=== PATIENT | female | born 2000 | race Two or more races ===

== ENCOUNTER 2020-12-17 14:31 | Emergency (ER) | payer OTHER, SELFPAY ==
[2020-12-17 14:49] VITALS: BP 169/97; PULSE 100; RESP 16; TEMP 36.6; O2SAT 98; BMI 41.1
--- NOTE | 2020-12-17 15:39 | ED_ITS ---
HPI - Female Genitourinary General Chief complaint: Urogenital-Female <LUIS ALBERTO Mercedes - Last Filed: 12/17/20 16:54> Stated complaint: QUEST UTI <LUIS ALBERTO Mercedes Last Filed: 12/17/20 16:54> Time Seen by Provider: 12/17/20 15:39 <LUIS ALBERTO Mercedes Last Filed: 12/17/20 16:54> Source: patient <LUIS ALBERTO Mercedes Last Filed: 12/17/20 16:54> Mode of arrival: ambulatory <LUIS ALBERTO Mercedes Last Filed: 12/17/20 16:54> Limitations: no limitations <LUIS ALBERTO Mercedes Last Filed: 12/17/20 16:54> History of Present Illness HPI Narrative: 20 y/o female presenting with 2 days of painful urination. She states it nash when she urinates and wipes herself. She reportedly had a yeast infection about 10 days ago with white thick discharge and itching. She treated herself with over the counter medication with resolution of discharge. She continues to have some itching externally. Sexually active and does not recall her last menses. She has been urinating more frequently with discomfort. No blood in her urine, no vaginal bleeding. No abdominal pain, fever or chills. <LUIS ALBERTO Mercedes Last Filed: 12/17/20 16:54> MD elicited complaint: dysuria and genital itching <LUIS ALBERTO Mercedes Last Filed: 12/17/20 16:54> Onset (ago): day(s) (4) <LUIS ALBERTO Mercedes Last Filed: 12/17/20 16:54> Location of symptoms: external genitalia <LUIS ALBERTO Mercedes Last Filed: 12/17/20 16:54> Severity: moderate <LUIS ALBERTO Mercedes Last Filed: 12/17/20 16:54> Female Urogenital Radiation: Non-Radiating <LUIS ALBERTO Mercedes Last Filed: 12/17/20 16:54> Severity scale (1-10): 5 <LUIS ALBERTO Mercedes Last Filed: 12/17/20 16:54> Quality of pain: sharp and burning <LUIS ALBERTO Mercedes - Last Filed: 12/17/20 16:54> Consistency: intermittent <LUIS ALBERTO Mercedes - Last Filed: 12/17/20 16:54> Vaginal discharge: none <LUIS ALBERTO Mercedes - Last Filed: 12/17/20 16:54> Vaginal bleeding: none <LUIS ALBERTO Mercedes - Last Filed: 12/17/20 16:54> Urinary symptoms: Dysuria and Frequency <LUIS ALBERTO Mercedes - Last Filed: 12/17/20 16:54> Exacerbating factors: urination and palpation <LUIS ALBERTO Mercedes - Last Filed: 12/17/20 16:54> Relieving factors: none <LUIS ALBERTO Mercedes - Last Filed: 12/17/20 16:54> Associated symptoms: denies other symptoms <LUIS ALBERTO Mercedes - Last Filed: 12/17/20 16:54> Treatment prior to arrival: none <LUIS ALBERTO Mercedes - Last Filed: 12/17/20 16:54> Sexual activity: Yes <LUIS ALBERTO Mercedes - Last Filed: 12/17/20 16:54> Possible : unsure if <LUIS ALBERTO Mercedes - Last Filed: 12/17/20 16:54> Related Data Home medications: Previous Rx's Medication Instructions Recorded blood sugar diagnostic #10 ea 12/17/20 blood-glucose meter #1 ea 12/17/20 clotrimazole-betamethasone 1 appl TOPICAL BID #15 g 12/17/20 fluconazole [Diflucan] 150 mg PO DAILY #1 tab 12/17/20 lancets #100 ea 12/17/20 metformin 500 mg PO BID #60 tab 12/17/20 nitrofurantoin monohyd/m-cryst 100 mg PO BID #10 cap 12/17/20 [Macrobid] <LUIS ALBERTO Mercedes - Last Filed: 12/17/20 16:54> Allergies/Adverse reactions: Allergies Allergy/AdvReac Type Severity Reaction Status Date / Time No Known Allergies Allergy Unverified 07/10/20 17:00 [No Known Allergies*] <LUIS ALBERTO Mercedes - Last Filed: 12/17/20 16:54> Review of Systems Review of Systems: Constitutional: No Fever, No Chills Cardiovascular: No Chest Pain, No SOB Respiratory: No Cough, No Sputum Gastrointestinal: No Nausea, No Vomiting, No Diarrhea, No abdominal Pain Genitourinary: + Dysuria, No Urinary Frequency, No Hematuria Musculoskeletal: No joint pain, No Myalgias Skin: + Skin Lesions, No rash Endo: +polydipsia <LUIS ALBERTO Mercedes - Last Filed: 12/17/20 16:54> [facility] Past Medical History Attestation statement: The following information was validated with the patient. <LUIS ALBERTO Mercedes - Last Filed: 12/17/20 16:54> Social History Social History: Social History Alcohol intake: never Smoked in Last 30 Days: No Use of substances other than those prescribed or required for medical reasons: No Advance Directives: No Advance Directives Information Provided: Yes <LUIS ALBERTO Mercedes - Last Filed: 12/17/20 16:54> Physical Exam Vital Signs: Vital Signs: Last Vital Signs Temp 98 F 12/17/20 14:49 Pulse 100 12/17/20 14:49 Resp 16 12/17/20 14:49 BP 169/97 H 12/17/20 14:49 Pulse Ox 98 12/17/20 14:49 Body Mass Index 41.1 Appearance: Alert. Oriented X3. No acute distress. Eyes: Pupils equal, round and reactive to light. ENT: Pharynx normal. Neck: Normal inspection. Respiratory: No respiratory distress. Breath sounds normal. Abdomen: Obese, Soft and nontender. +BS x4 : external genitalia are normal in appearance, inner labia with erythema and mild excoriations on the medial, inner aspect, no vaginal discharge appreciated. speculum and bimanual exam deferred. Skin: Skin warm and dry. Normal skin color. Normal skin turgor. No rashes. Extremities: No lower extremity edema. Neuro: Oriented X 3. No motor deficit. No sensory deficit. <LUIS ALBERTO Mercedes - Last Filed: 12/17/20 16:54> Vital Signs: Last Vital Signs Temp 98 F 12/17/20 14:49 Pulse 100 12/17/20 14:49 Resp 16 12/17/20 14:49 BP 169/97 H 12/17/20 14:49 Pulse Ox 98 12/17/20 14:49 Body Mass Index 41.1 <Toshia Miranda NP - Last Filed: 12/17/20 19:26> Vital Signs: Last Vital Signs Temp 98 F 12/17/20 14:49 Pulse 100 12/17/20 14:49 Resp 16 12/17/20 14:49 BP 169/97 H 12/17/20 14:49 Pulse Ox 98 12/17/20 14:49 Body Mass Index 41.1 <Filemon Whitfield MD - Last Filed: 01/06/21 11:28> Course Course Course Narrative: 20 y/o female presenting with dysuria x2 days after she treated with topical antifungal last week for yeast infection. Exam is consistent with candidal vulvovaginitis, will treat with oral diflucan now. UA and Upreg pendin g. <LUIS ALBERTO Mercedes - Last Filed: 12/17/20 16:54> I have reviewed the chart <Filemon Whitfield MD - Last Filed: 01/06/21 11:28> Reevaluation(s) Reevaluation #1: UA showing +nitrites as well as >1000 glucose and 2+ protein. She denies history of DM. Admits to polydipsia. No other symptoms. Will check POC glucose now. <LUIS ALBERTO Mercedes - Last Filed: 12/17/20 16:54> Reevaluation #2: POC is 408. She has a family history of DM but no personal history. Last glucose here was 102 back in 2018. Will get basic lab workup and hemoglobin A1c. She appears well, doubt DKA. Will give 2L IVF and reassess. Results discussed w ith the patient. Will sign out to covering evening provider who will assume care. <LUIS ALBERTO Mercedes - Last Filed: 12/17/20 16:54> MDM - Female Genitourinary Lab Data Result diagrams: : 12/17/20 17:37 12/17/20 17:37 <LUIS ALBERTO Mercedes - Last Filed: 12/17/20 16:54> Labs: Lab Results 12/17/20 12/17/20 12/17/20 Range/Units 15:33 15:33 16:31 WBC (4.8-10.8) X10*3/uL RBC (4.20-5.50) X10*6/uL Hgb (12.0-16.0) g/dl Hct (37-47) % MCV (80-98) fL MCH (27.0-33.0) pg MCHC (31.0-35.0) g/dl RDW (11.0-16.0) % Plt Count (160-400) X10*3/uL MPV (9.4-12.3) fL Immature Gran % (Auto) (0.0-0.4) % Neut % (Auto) (45-73) % Lymph % (Auto) (20-40) % [place] % (Auto) (2-11) % Eos % (Auto) (0-4) % Baso % (Auto) (0-2) % Lymph # (Auto) (1.2-4.9) X10*3/uL [place] # (Auto) (0.1-1.2) X10*3/uL Eos # (Auto) (0.0-0.4) X10*3/uL Baso # (Auto) (0.0-0.2) X10*3/uL Abs Immat Gran (auto) (0.00-0.03) X10*3/uL Absolute Neuts (auto) (2.0-8.3) X10*3/uL Absolute Nucleated RBC (0.0-0.012) X10*3/uL Nucleated RBC % (auto) (0.0-0.2) /100WBC Sodium (135-145) mmol/L Potassium (3.3-5.1) mmol/L Chloride (96-108) mmol/L Carbon Dioxide (22-29) mmol/L Anion Gap (12-20) BUN (9-16) mg/dL Creatinine (0.5-1.4) mg/dL Estim Creat Clear Calc Estimated GFR POC Glucose 408 H* (60-115) mg/dL Random Glucose (60-115) mg/dL Estimat Average Glucose mg/dL Hemoglobin A1c % % Calcium (8.4-10.2) mg/dL Magnesium (1.6-2.6) mg/dL Urine Color YELLOW Urine Appearance CLEAR Urine pH 6.0 (5.0-8.0) Ur Specific [place] >= 1.030 H (1.005-1.025) Urine Protein 2+ H (NEG-TRACE) MG/DL Urine Glucose (UA) >=1000 H (NEG) MG/DL Urine Ketones 40 (NEG) MG/DL Urine Blood TRACE (NEG) Urine Nitrite POS H (NEG) Ur Leukocyte Esterase NEG (NEG) Urine RBC 0-2 (0) /HPF Urine WBC 0-2 (0-4) /HPF Ur Squamous Epith Cells 2+ /LPF Urine Bacteria TRACE /LPF Granular Casts 0-2 /LPF Urine Yeast TRACE /HPF Urine Test NEGATIVE (NEGATIVE) Acetone, Qual (Negative) 12/17/20 12/17/20 12/17/20 Range/Units 16:35 17:37 17:37 WBC 8.9 (4.8-10.8) X10*3/uL RBC 5.74 H (4.20-5.50) X10*6/uL Hgb 14.7 (12.0-16.0) g/dl Hct 45.0 (37-47) % MCV 78.4 L (80-98) fL MCH 25.6 L (27.0-33.0) pg MCHC 32.7 (31.0-35.0) g/dl RDW 12.7 (11.0-16.0) % Plt Count 342 (160-400) X10*3/uL MPV 10.3 (9.4-12.3) fL Immature Gran % (Auto) 0.2 (0.0-0.4) % Neut % (Auto) 65.3 (45-73) % Lymph % (Auto) 29.2 (20-40) % [place] % (Auto) 4.0 (2-11) % Eos % (Auto) 1.0 (0-4) % Baso % (Auto) 0.3 (0-2) % Lymph # (Auto) 2.6 (1.2-4.9) X10*3/uL [place] # (Auto) 0.4 (0.1-1.2) X10*3/uL Eos # (Auto) 0.1 (0.0-0.4) X10*3/uL Baso # (Auto) 0.0 (0.0-0.2) X10*3/uL Abs Immat Gran (auto) 0.02 (0.00-0.03) X10*3/uL Absolute Neuts (auto) 5.8 (2.0-8.3) X10*3/uL Absolute Nucleated RBC 0.000 (0.0-0.012) X10*3/uL Nucleated RBC % (auto) 0.0 (0.0-0.2) /100WBC Sodium (135-145) mmol/L Potassium (3.3-5.1) mmol/L Chloride (96-108) mmol/L Carbon Dioxide (22-29) mmol/L Anion Gap (12-20) BUN (9-16) mg/dL Creatinine (0.5-1.4) mg/dL Estim Creat Clear Calc Estimated GFR POC Glucose 409 H* (60-115) mg/dL Random Glucose (60-115) mg/dL Estimat Average Glucose 289 mg/dL Hemoglobin A1c % 11.7 % Calcium (8.4-10.2) mg/dL Magnesium (1.6-2.6) mg/dL Urine Color Urine Appearance Urine pH (5.0-8.0) Ur Specific [place] (1.005-1.025) Urine Protein (NEG-TRACE) MG/DL Urine Glucose (UA) (NEG) MG/DL Urine Ketones (NEG) MG/DL Urine Blood (NEG) Urine Nitrite (NEG) Ur Leukocyte Esterase (NEG) Urine RBC (0) /HPF Urine WBC (0-4) /HPF Ur Squamous Epith Cells /LPF Urine Bacteria /LPF Granular Casts /LPF Urine Yeast /HPF Urine Test (NEGATIVE) Acetone, Qual (Negative) 12/17/20 12/17/20 12/17/20 Range/Units 17:37 17:37 19:13 WBC (4.8-10.8) X10*3/uL RBC (4.20-5.50) X10*6/uL Hgb (12.0-16.0) g/dl Hct (37-47) % MCV (80-98) fL MCH (27.0-33.0) pg MCHC (31.0-35.0) g/dl RDW (11.0-16.0) % Plt Count (160-400) X10*3/uL MPV (9.4-12.3) fL Immature Gran % (Auto) (0.0-0.4) % Neut % (Auto) (45-73) % Lymph % (Auto) (20-40) % [place] % (Auto) (2-11) % Eos % (Auto) (0-4) % Baso % (Auto) (0-2) % Lymph # (Auto) (1.2-4.9) X10*3/uL [place] # (Auto) (0.1-1.2) X10*3/uL Eos # (Auto) (0.0-0.4) X10*3/uL Baso # (Auto) (0.0-0.2) X10*3/uL Abs Immat Gran (auto) (0.00-0.03) X10*3/uL Absolute Neuts (auto) (2.0-8.3) X10*3/uL Absolute Nucleated RBC (0.0-0.012) X10*3/uL Nucleated RBC % (auto) (0.0-0.2) /100WBC Sodium 134 L (135-145) mmol/L Potassium 4.4 (3.3-5.1) mmol/L Chloride 98 (96-108) mmol/L Carbon Dioxide 22 (22-29) mmol/L Anion Gap 18 (12-20) BUN 10 (9-16) mg/dL Creatinine 0.77 (0.5-1.4) mg/dL Estim Creat Clear Calc 138.1 Estimated GFR > 60 POC Glucose 275 H (60-115) mg/dL Random Glucose 382 H* (60-115) mg/dL Estimat Average Glucose mg/dL Hemoglobin A1c % % Calcium 9.6 (8.4-10.2) mg/dL Magnesium 1.8 (1.6-2.6) mg/dL Urine Color Urine Appearance Urine pH (5.0-8.0) Ur Specific [place] (1.005-1.025) Urine Protein (NEG-TRACE) MG/DL Urine Glucose (UA) (NEG) MG/DL Urine Ketones (NEG) MG/DL Urine Blood (NEG) Urine Nitrite (NEG) Ur Leukocyte Esterase (NEG) Urine RBC (0) /HPF Urine WBC (0-4) /HPF Ur Squamous Epith Cells /LPF Urine Bacteria /LPF Granular Casts /LPF Urine Yeast /HPF Urine Test (NEGATIVE) Acetone, Qual Negative (Negative) <LUIS ALBERTO Mercedes - Last Filed: 12/17/20 16:54> Lab Results 12/17/20 12/17/20 12/17/20 Range/Units 15:33 15:33 16:31 WBC (4.8-10.8) X10*3/uL RBC (4.20-5.50) X10*6/uL Hgb (12.0-16.0) g/dl Hct (37-47) % MCV (80-98) fL MCH (27.0-33.0) pg MCHC (31.0-35.0) g/dl RDW (11.0-16.0) % Plt Count (160-400) X10*3/uL MPV (9.4-12.3) fL Immature Gran % (Auto) (0.0-0.4) % Neut % (Auto) (45-73) % Lymph % (Auto) (20-40) % [place] % (Auto) (2-11) % Eos % (Auto) (0-4) % Baso % (Auto) (0-2) % Lymph # (Auto) (1.2-4.9) X10*3/uL [place] # (Auto) (0.1-1.2) X10*3/uL Eos # (Auto) (0.0-0.4) X10*3/uL Baso # (Auto) (0.0-0.2) X10*3/uL Abs Immat Gran (auto) (0.00-0.03) X10*3/uL Absolute Neuts (auto) (2.0-8.3) X10*3/uL Absolute Nucleated RBC (0.0-0.012) X10*3/uL Nucleated RBC % (auto) (0.0-0.2) /100WBC Sodium (135-145) mmol/L Potassium (3.3-5.1) mmol/L Chloride (96-108) mmol/L Carbon Dioxide (22-29) mmol/L Anion Gap (12-20) BUN (9-16) mg/dL Creatinine (0.5-1.4) mg/dL Estim Creat Clear Calc Estimated GFR POC Glucose 408 H* (60-115) mg/dL Random Glucose (60-115) mg/dL Estimat Average Glucose mg/dL Hemoglobin A1c % % Calcium (8.4-10.2) mg/dL Magnesium (1.6-2.6) mg/dL Urine Color YELLOW Urine Appearance CLEAR Urine pH 6.0 (5.0-8.0) Ur Specific [place] >= 1.030 H (1.005-1.025) Urine Protein 2+ H (NEG-TRACE) MG/DL Urine Glucose (UA) >=1000 H (NEG) MG/DL Urine Ketones 40 (NEG) MG/DL Urine Blood TRACE (NEG) Urine Nitrite POS H (NEG) Ur Leukocyte Esterase NEG (NEG) Urine RBC 0-2 (0) /HPF Urine WBC 0-2 (0-4) /HPF Ur Squamous Epith Cells 2+ /LPF Urine Bacteria TRACE /LPF Granular Casts 0-2 /LPF Urine Yeast TRACE /HPF Urine Test NEGATIVE (NEGATIVE) Acetone, Qual (Negative) 12/17/20 12/17/20 12/17/20 Range/Units 16:35 17:37 17:37 WBC 8.9 (4.8-10.8) X10*3/uL RBC 5.74 H (4.20-5.50) X10*6/uL Hgb 14.7 (12.0-16.0) g/dl Hct 45.0 (37-47) % MCV 78.4 L (80-98) fL MCH 25.6 L (27.0-33.0) pg MCHC 32.7 (31.0-35.0) g/dl RDW 12.7 (11.0-16.0) % Plt Count 342 (160-400) X10*3/uL MPV 10.3 (9.4-12.3) fL Immature Gran % (Auto) 0.2 (0.0-0.4) % Neut % (Auto) 65.3 (45-73) % Lymph % (Auto) 29.2 (20-40) % [place] % (Auto) 4.0 (2-11) % Eos % (Auto) 1.0 (0-4) % Baso % (Auto) 0.3 (0-2) % Lymph # (Auto) 2.6 (1.2-4.9) X10*3/uL [place] # (Auto) 0.4 (0.1-1.2) X10*3/uL Eos # (Auto) 0.1 (0.0-0.4) X10*3/uL Baso # (Auto) 0.0 (0.0-0.2) X10*3/uL Abs Immat Gran (auto) 0.02 (0.00-0.03) X10*3/uL Absolute Neuts (auto) 5.8 (2.0-8.3) X10*3/uL Absolute Nucleated RBC 0.000 (0.0-0.012) X10*3/uL Nucleated RBC % (auto) 0.0 (0.0-0.2) /100WBC Sodium (135-145) mmol/L Potassium (3.3-5.1) mmol/L Chloride (96-108) mmol/L Carbon Dioxide (22-29) mmol/L Anion Gap (12-20) BUN (9-16) mg/dL Creatinine (0.5-1.4) mg/dL Estim Creat Clear Calc Estimated GFR POC Glucose 409 H* (60-115) mg/dL Random Glucose (60-115) mg/dL Estimat Average Glucose 289 mg/dL Hemoglobin A1c % 11.7 % Calcium (8.4-10.2) mg/dL Magnesium (1.6-2.6) mg/dL Urine Color Urine Appearance Urine pH (5.0-8.0) Ur Specific [place] (1.005-1.025) Urine Protein (NEG-TRACE) MG/DL Urine Glucose (UA) (NEG) MG/DL Urine Ketones (NEG) MG/DL Urine Blood (NEG) Urine Nitrite (NEG) Ur Leukocyte Esterase (NEG) Urine RBC (0) /HPF Urine WBC (0-4) /HPF Ur Squamous Epith Cells /LPF Urine Bacteria /LPF Granular Casts /LPF Urine Yeast /HPF Urine Test (NEGATIVE) Acetone, Qual (Negative) 12/17/20 12/17/20 12/17/20 Range/Units 17:37 17:37 19:13 WBC (4.8-10.8) X10*3/uL RBC (4.20-5.50) X10*6/uL Hgb (12.0-16.0) g/dl Hct (37-47) % MCV (80-98) fL MCH (27.0-33.0) pg MCHC (31.0-35.0) g/dl RDW (11.0-16.0) % Plt Count (160-400) X10*3/uL MPV (9.4-12.3) fL Immature Gran % (Auto) (0.0-0.4) % Neut % (Auto) (45-73) % Lymph % (Auto) (20-40) % [place] % (Auto) (2-11) % Eos % (Auto) (0-4) % Baso % (Auto) (0-2) % Lymph # (Auto) (1.2-4.9) X10*3/uL [place] # (Auto) (0.1-1.2) X10*3/uL Eos # (Auto) (0.0-0.4) X10*3/uL Baso # (Auto) (0.0-0.2) X10*3/uL Abs Immat Gran (auto) (0.00-0.03) X10*3/uL Absolute Neuts (auto) (2.0-8.3) X10*3/uL Absolute Nucleated RBC (0.0-0.012) X10*3/uL Nucleated RBC % (auto) (0.0-0.2) /100WBC Sodium 134 L (135-145) mmol/L Potassium 4.4 (3.3-5.1) mmol/L Chloride 98 (96-108) mmol/L Carbon Dioxide 22 (22-29) mmol/L Anion Gap 18 (12-20) BUN 10 (9-16) mg/dL Creatinine 0.77 (0.5-1.4) mg/dL Estim Creat Clear Calc 138.1 Estimated GFR > 60 POC Glucose 275 H (60-115) mg/dL Random Glucose 382 H* (60-115) mg/dL Estimat Average Glucose mg/dL Hemoglobin A1c % % Calcium 9.6 (8.4-10.2) mg/dL Magnesium 1.8 (1.6-2.6) mg/dL Urine Color Urine Appearance Urine pH (5.0-8.0) Ur Specific [place] (1.005-1.025) Urine Protein (NEG-TRACE) MG/DL Urine Glucose (UA) (NEG) MG/DL Urine Ketones (NEG) MG/DL Urine Blood (NEG) Urine Nitrite (NEG) Ur Leukocyte Esterase (NEG) Urine RBC (0) /HPF Urine WBC (0-4) /HPF Ur Squamous Epith Cells /LPF Urine Bacteria /LPF Granular Casts /LPF Urine Yeast /HPF Urine Test (NEGATIVE) Acetone, Qual Negative (Negative) <Toshia Miranda, [employer] - Last Filed: 12/17/20 19:26> Lab Results 12/17/20 12/17/20 12/17/20 Range/Units 15:33 15:33 16:31 WBC (4.8-10.8) X10*3/uL RBC (4.20-5.50) X10*6/uL Hgb (12.0-16.0) g/dl Hct (37-47) % MCV (80-98) fL MCH (27.0-33.0) pg MCHC (31.0-35.0) g/dl RDW (11.0-16.0) % Plt Count (160-400) X10*3/uL MPV (9.4-12.3) fL Immature Gran % (Auto) (0.0-0.4) % Neut % (Auto) (45-73) % Lymph % (Auto) (20-40) % [place] % (Auto) (2-11) % Eos % (Auto) (0-4) % Baso % (Auto) (0-2) % Lymph # (Auto) (1.2-4.9) X10*3/uL [place] # (Auto) (0.1-1.2) X10*3/uL Eos # (Auto) (0.0-0.4) X10*3/uL Baso # (Auto) (0.0-0.2) X10*3/uL Abs Immat Gran (auto) (0.00-0.03) X10*3/uL Absolute Neuts (auto) (2.0-8.3) X10*3/uL Absolute Nucleated RBC (0.0-0.012) X10*3/uL Nucleated RBC % (auto) (0.0-0.2) /100WBC Sodium (135-145) mmol/L Potassium (3.3-5.1) mmol/L Chloride (96-108) mmol/L Carbon Dioxide (22-29) mmol/L Anion Gap (12-20) BUN (9-16) mg/dL Creatinine (0.5-1.4) mg/dL Estim Creat Clear Calc Estimated GFR POC Glucose 408 H* (60-115) mg/dL Random Glucose (60-115) mg/dL Estimat Average Glucose mg/dL Hemoglobin A1c % % Calcium (8.4-10.2) mg/dL Magnesium (1.6-2.6) mg/dL Urine Color YELLOW Urine Appearance CLEAR Urine pH 6.0 (5.0-8.0) Ur Specific [place] >= 1.030 H (1.005-1.025) Urine Protein 2+ H (NEG-TRACE) MG/DL Urine Glucose (UA) >=1000 H (NEG) MG/DL Urine Ketones 40 (NEG) MG/DL Urine Blood TRACE (NEG) Urine Nitrite POS H (NEG) Ur Leukocyte Esterase NEG (NEG) Urine RBC 0-2 (0) /HPF Urine WBC 0-2 (0-4) /HPF Ur Squamous Epith Cells 2+ /LPF Urine Bacteria TRACE /LPF Granular Casts 0-2 /LPF Urine Yeast TRACE /HPF Urine Test NEGATIVE (NEGATIVE) Acetone, Qual (Negative) 12/17/20 12/17/20 12/17/20 Range/Units 16:35 17:37 17:37 WBC 8.9 (4.8-10.8) X10*3/uL RBC 5.74 H (4.20-5.50) X10*6/uL Hgb 14.7 (12.0-16.0) g/dl Hct 45.0 (37-47) % MCV 78.4 L (80-98) fL MCH 25.6 L (27.0-33.0) pg MCHC 32.7 (31.0-35.0) g/dl RDW 12.7 (11.0-16.0) % Plt Count 342 (160-400) X10*3/uL MPV 10.3 (9.4-12.3) fL Immature Gran % (Auto) 0.2 (0.0-0.4) % Neut % (Auto) 65.3 (45-73) % Lymph % (Auto) 29.2 (20-40) % [place] % (Auto) 4.0 (2-11) % Eos % (Auto) 1.0 (0-4) % Baso % (Auto) 0.3 (0-2) % Lymph # (Auto) 2.6 (1.2-4.9) X10*3/uL [place] # (Auto) 0.4 (0.1-1.2) X10*3/uL Eos # (Auto) 0.1 (0.0-0.4) X10*3/uL Baso # (Auto) 0.0 (0.0-0.2) X10*3/uL Abs Immat Gran (auto) 0.02 (0.00-0.03) X10*3/uL Absolute Neuts (auto) 5.8 (2.0-8.3) X10*3/uL Absolute Nucleated RBC 0.000 (0.0-0.012) X10*3/uL Nucleated RBC % (auto) 0.0 (0.0-0.2) /100WBC Sodium (135-145) mmol/L Potassium (3.3-5.1) mmol/L Chloride (96-108) mmol/L Carbon Dioxide (22-29) mmol/L Anion Gap (12-20) BUN (9-16) mg/dL Creatinine (0.5-1.4) mg/dL Estim Creat Clear Calc Estimated GFR POC Glucose 409 H* (60-115) mg/dL Random Glucose (60-115) mg/dL Estimat Average Glucose 289 mg/dL Hemoglobin A1c % 11.7 % Calcium (8.4-10.2) mg/dL Magnesium (1.6-2.6) mg/dL Urine Color Urine Appearance Urine pH (5.0-8.0) Ur Specific [place] (1.005-1.025) Urine Protein (NEG-TRACE) MG/DL Urine Glucose (UA) (NEG) MG/DL Urine Ketones (NEG) MG/DL Urine Blood (NEG) Urine Nitrite (NEG) Ur Leukocyte Esterase (NEG) Urine RBC (0) /HPF Urine WBC (0-4) /HPF Ur Squamous Epith Cells /LPF Urine Bacteria /LPF Granular Casts /LPF Urine Yeast /HPF Urine Test (NEGATIVE) Acetone, Qual (Negative) 12/17/20 12/17/20 12/17/20 Range/Units 17:37 17:37 19:13 WBC (4.8-10.8) X10*3/uL RBC (4.20-5.50) X10*6/uL Hgb (12.0-16.0) g/dl Hct (37-47) % MCV (80-98) fL MCH (27.0-33.0) pg MCHC (31.0-35.0) g/dl RDW (11.0-16.0) % Plt Count (160-400) X10*3/uL MPV (9.4-12.3) fL Immature Gran % (Auto) (0.0-0.4) % Neut % (Auto) (45-73) % Lymph % (Auto) (20-40) % [place] % (Auto) (2-11) % Eos % (Auto) (0-4) % Baso % (Auto) (0-2) % Lymph # (Auto) (1.2-4.9) X10*3/uL [place] # (Auto) (0.1-1.2) X10*3/uL Eos # (Auto) (0.0-0.4) X10*3/uL Baso # (Auto) (0.0-0.2) X10*3/uL Abs Immat Gran (auto) (0.00-0.03) X10*3/uL Absolute Neuts (auto) (2.0-8.3) X10*3/uL Absolute Nucleated RBC (0.0-0.012) X10*3/uL Nucleated RBC % (auto) (0.0-0.2) /100WBC Sodium 134 L (135-145) mmol/L Potassium 4.4 (3.3-5.1) mmol/L Chloride 98 (96-108) mmol/L Carbon Dioxide 22 (22-29) mmol/L Anion Gap 18 (12-20) BUN 10 (9-16) mg/dL Creatinine 0.77 (0.5-1.4) mg/dL Estim Creat Clear Calc 138.1 Estimated GFR > 60 POC Glucose 275 H (60-115) mg/dL Random Glucose 382 H* (60-115) mg/dL Estimat Average Glucose mg/dL Hemoglobin A1c % % Calcium 9.6 (8.4-10.2) mg/dL Magnesium 1.8 (1.6-2.6) mg/dL Urine Color Urine Appearance Urine pH (5.0-8.0) Ur Specific [place] (1.005-1.025) Urine Protein (NEG-TRACE) MG/DL Urine Glucose (UA) (NEG) MG/DL Urine Ketones (NEG) MG/DL Urine Blood (NEG) Urine Nitrite (NEG) Ur Leukocyte Esterase (NEG) Urine RBC (0) /HPF Urine WBC (0-4) /HPF Ur Squamous Epith Cells /LPF Urine Bacteria /LPF Granular Casts /LPF Urine Yeast /HPF Urine Test (NEGATIVE) Acetone, Qual Negative (Negative) <Filemon Whitfield MD - Last Filed: 01/06/21 11:28> Discharge Plan Discharge Clinical Impression: Candidal vulvovaginitis, UTI (urinary tract infection), Protein in urine, Diabetes mellitus, new onset <LUIS ALBERTO Mercedes - Last Filed: 12/17/20 16:54> Patient Disposition: Home, Self-Care <LUIS ALBERTO Mercedes - Last Filed: 12/17/20 16:54> Instructions: Urinary Tract Infection in Women (ED), Yeast Infection (ED) <LUIS ALBERTO Mercedes - Last Filed: 12/17/20 16:54> Additional Instructions: Your test was negative. Your urine test showed evidence of bacterial infection as well as glucose and protein. This must be followed up by your doctor. You were given 1 dose of a medication to treat yeast infection of the skin. If your symptoms persist on Wednesday 12/20, take another dose of this medication (sent to your pharmacy) Use the topical prescription cream as needed for itching. (it may burn initially) Do not have any sexual activity until your symptoms are completely resolved. Follow up with your doctor as needed-you have been provided the list <LUIS ALBERTO Mercedes - Last Filed: 12/17/20 16:54> Prescriptions: New fluconazole [Diflucan] 150 mg tablet 150 mg PO DAILY Qty: 1 RF: 0 clotrimazole-betamethasone 1-0.05 % cream 1 appl topical BID Qty: 15 RF: 0 nitrofurantoin monohyd/m-cryst [Macrobid] 100 mg capsule 100 mg PO BID Qty: 10 RF: 0 metformin 500 mg tablet 500 mg PO BID Qty: 60 RF: 0 (DME) blood-glucose meter Kit See Rx Instructions .ROUTE .MEDSUPPLY Qty: 1 RF: 0 (DME) lancets Misc See Rx Instructions .ROUTE .MEDSUPPLY Qty: 100 RF: 0 (DME) blood sugar diagnostic Strip See Rx Instructions .ROUTE .MEDSUPPLY Qty: 10 RF: 0 <LUIS ALBERTO Mercedes - Last Filed: 12/17/20 16:54> Referrals: Physician,None [Primary Care Provider] - 2 days <LUIS ALBERTO Mercedes - Last Filed: 12/17/20 16:54> Interventions: ED Discharge Assessment Last Done: 12/17/20 19:42 <LUIS ALBERTO Mercedes - Last Filed: 12/17/20 16:54> Discharge Date/Time: 12/17/20 19:47 <LUIS ALBERTO Mercedes - Last Filed: 12/17/20 16:54>
[2020-12-17 16:06] LABS: Glucose Urine UA >=1000 MG/DL (NEG); Leukocyte Esterase Urine NEG (NEG); Nitrite Urine POS (NEG); Specific Gravity - Urine >= 1.030 (1.005-1.025); Urine Blood TRACE (NEG); Urine Ketones 40 MG/DL (NEG); Urine Protein 2+ MG/DL (NEG-TRACE)
[2020-12-17 16:13] LABS: Appearance Urine CLEAR; Color Urine YELLOW
[2020-12-17 16:15] LABS: UPreg QC Valid YES; Urine Pregnancy NEGATIVE (NEGATIVE)
[2020-12-17] MEDS: Fluconazole 150 MG TABLET PO (16:27)
[2020-12-17 16:32] LABS: Bacteria Urine TRACE /LPF; RBC Urine 0-2 /HPF (0); Squamous Epithelial Cell Urine 2+ /LPF; WBC Urine 0-2 /HPF (0-4)
[2020-12-17 16:33] LABS: Granular Casts Urine 0-2 /LPF
[2020-12-17 16:39] LABS: Glucose, Whole Blood 409 mg/dL (60-115)
[2020-12-17 16:39] LABS: Glucose, Whole Blood 408 mg/dL (60-115)
[2020-12-17] MEDS: Nitrofurantoin Monohyd/M-Cryst 100 MG CAPSULE PO (17:46)
[2020-12-17] MEDS: 0.9 % Sodium Chloride 1,000 ML 999 ML IVCONT ×2 (17:46)
[2020-12-17 17:55] LABS: MANUAL DIFF FLAG NO
[2020-12-17 18:01] LABS: Basophils Percent Auto 0.3 % (0-2); Eosinophils Absolute Auto 0.1 X10*3/uL (0.0-0.4); Hemoglobin 14.7 g/dl (12.0-16.0); Imm Gran Abs Auto 0.02 X10*3/uL (0.00-0.03); Imm Gran Pct Auto 0.2 % (0.0-0.4); Lymphocytes Absolute Auto 2.6 X10*3/uL (1.2-4.9); Lymphocytes Percent Auto 29.2 % (20-40); Mean Corpuscular HGB Conc 32.7 g/dl (31.0-35.0); Mean Corpuscular Hemoglobin 25.6 pg (27.0-33.0); Mean Corpuscular Volume 78.4 fL (80-98); Mean Platelet Volume 10.3 fL (9.4-12.3); Monocytes Absolute Auto 0.4 X10*3/uL (0.1-1.2); Neutrophils Absolute Auto 5.8 X10*3/uL (2.0-8.3); Neutrophils Percent Auto 65.3 % (45-73); Platelet Count 342 X10*3/uL (160-400); Red Blood Count 5.74 X10*6/uL (4.20-5.50); Red Cell Distribution Width 12.7 % (11.0-16.0); White Blood Count 8.9 X10*3/uL (4.8-10.8)
[2020-12-17 18:14] LABS: Acetone, serum QL Negative (Negative)
[2020-12-17 18:24] LABS: Estimated Average Glucose 289 mg/dL; Hemoglobin A1c % 11.7 %
[2020-12-17 18:35] LABS: Anion Gap 18 (12-20); Blood Urea Nitrogen 10 mg/dL (9-16); Calcium 9.6 mg/dL (8.4-10.2); Carbon Dioxide 22 mmol/L (22-29); Chloride 98 mmol/L (96-108); Creatinine Clr Calc Pharmacy 138.1; Estimated Glomerular Filt Rate > 60; Glucose Random 382 mg/dL (60-115); Magnesium 1.8 mg/dL (1.6-2.6); Potassium 4.4 mmol/L (3.3-5.1); Sodium 134 mmol/L (135-145)
--- NOTE | 2020-12-17 18:58 | MHC.CM.ED ---
CM met with pt at request of Toshia Rose regarding lack of PCP, new Diabetes diagnosis, medication, Blood glucose monitoring and possible [facility]. [phone]. Pt brings her children to [facility]. Pt will call tomorrow morning to request an appointment JUAN. To explain new diagnosis, A1C of 11.7 and POC BS of 408. Reviewed medications including medication for UTI, for yeast infection and oral diabetes medications. Reviewed healthy eating dinner plate. Pt willing to learn. Very attentive. Understands importance of making an appointment. Milton requested referral to [facility] for diabetic teaching/medication management, however pt does not have a PCP. Encouraged pt to ask new provider about diabetic teaching/med management/diet. D/C plan is home. CM to follow for D/C needs.
[2020-12-17 19:19] LABS: Glucose, Whole Blood 275 mg/dL (60-115)
--- NOTE | 2020-12-17 19:41 | PC.NURSE ---
PT SPOKE WITH CASE WORK ABOUT SCHEDULING A PCP AND GETTING EDUCATION ON DIABETES TEACHING.
== END 2020-12-17 19:47 | disposition home or self-care (01) ==
PROVIDERS: Physician Assistant; Emergency Provider Emergency Medicine
DX: N30.00 Acute cystitis without hematuria (principal); B37.3 Candidiasis of vulva and vagina; R30.0 Dysuria; R80.9 Proteinuria, unspecified; Z79.899 Other long term (current) drug therapy
CPT/HCPCS: 36415; 80048; 81001; 81003; 81025; 82009; 82947; 83036; 83735; 85025; 96360; 96365; 99284

== ENCOUNTER 2023-01-05 11:26 | Outpatient (REF) | payer MEDICAID, SELFPAY ==
[2023-01-05 13:08] LABS: Hemoglobin 12.8 g/dl (12.0-16.0); Mean Corpuscular Hemoglobin 24.9 pg (27.0-33.0); Mean Corpuscular Volume 77.7 fL (80.0-98.0); Platelet Count 346 X10*3/uL (160-400); Red Blood Count 5.15 X10*6/uL (4.20-5.50); Red Cell Distribution Width 13.6 % (11.0-16.0)
[2023-01-05 13:41] LABS: Appearance Urine Clear; Color Urine Yellow; Glucose Urine UA Negative (Negative); Leukocyte Esterase Urine Trace (Negative); Nitrite Urine Negative (Negative); PH 5.5 (5.0-9.0); Specific Gravity - Urine 1.015 (1.005-1.025); UMIC TRIGGER UACC YES; Urine Blood Negative (Negative); Urine Ketones Trace mg/dL (Negative); Urine Protein 100 (2+) mg/dL (Neg-Trace)
[2023-01-05 13:44] LABS: Amphetamine Screen Urine Not Detected (Not Detect); Barbiturates, Urine Not Detected (Not Detect); Benzodiazepines Screen Urine Not Detected (Not Detect); Cannabinoid Screen Urine Not Detected (Not Detect); Cocaine Screen Urine Not Detected (Not Detect); Fentanyl, urine Not Detected (Not Detect); Opiate Screen Urine Not Detected (Not Detect); Phencyclidine Screen Urine Not Detected (Not Detect)
[2023-01-05 13:46] LABS: Glucose Fasting 143 mg/dL (60-99)
[2023-01-05 13:52] LABS: Bacteria Urine None Seen (None Seen); Hyaline Casts Urine 0-2 /LPF (0-2); RBC Urine 0-2 /HPF (0-2); WBC Urine 0-5 /HPF (0-5)
[2023-01-05 14:04] LABS: Creatinine Urine 121.73 mg/dL; Protein/Creatinine Ratio, Ur 0.58 (<0.2); Total Protein Urine Random 70 mg/dL (<12)
[2023-01-05 14:08] LABS: Syphilis Screen Nonreactive (Nonreactive)
[2023-01-05 14:59] LABS: Estimated Average Glucose 197 mg/dL; Hemoglobin A1c % 8.5 %
[2023-01-05 15:07] LABS: Alanine Aminotransferase 97 U/L (0-31); Aspartate Amino Transferase 68 U/L (5-31); Blood Urea Nitrogen 7 mg/dL (9-16)
[2023-01-05 17:58] LABS: Glucose 2 Hour PP 218 mg/dL (60-115)
[2023-01-06 21:23] LABS: Rubella IgG Antibody 1.31 Index
[2023-01-07 08:32] LABS: HBsAGNum1 0.29 S/CO (0.00-0.99); HIV AB/AG Nonreactive (Nonreactive); HIV Num 1 0.05 S/CO (0.00-0.99); Hepatitis B Surface Antigen Negative (Negative); ~HepC Num1 0.07 S/CO (0.00-0.79); ~Hepatitis C Antibody Nonreactive (Nonreactive)
[2023-01-14 11:34] LABS: CF Ethnicity NG; Cystic Fibrosis NEGATIVE (NEGATIVE)
== END 2023-01-05 11:27 | disposition home or self-care (01) ==
LOC: HO.LAB 11:26
PROVIDERS: Visit Provider Advanced Practice Midwife
DX: O24.119 Pre-existing type 2 diabetes mellitus, in pregnancy, unspecified trimester (principal); O26.899 Other specified pregnancy related conditions, unspecified trimester; R03.0 Elevated blood-pressure reading, without diagnosis of hypertension; Z20.2 Contact with and (suspected) exposure to infections with a predominantly sexual mode of transmission; Z32.01 Encounter for pregnancy test, result positive
CPT/HCPCS: 36415; 80307; 81001; 81025; 81220; 82947; 82951; 83036; 84156; 84450; 84460; 84520; 85027; 86762; 86780; 86787; 86803; 86850; 86886; 86900; 87340; 87389; 99202

== ENCOUNTER 2023-01-06 | Outpatient (REF) | payer MEDICAID, SELFPAY | END 2023-01-06 00:01 | disposition home or self-care (01) | LOC: CF | PROVIDERS: Visit Provider Obstetrics & Gynecology | DX: Z34.90 Encounter for supervision of normal pregnancy, unspecified, unspecified trimester (principal) | CPT/HCPCS: 99212 ==

== ENCOUNTER 2023-01-07 13:58 | Outpatient (REF) | payer MEDICAID, SELFPAY ==
--- NOTE | ~2023-01-07 | US_ITS ---
EXAMINATION: US OBSTETRICAL ULTRASOUND CLINICAL INFORMATION: Size and dates COMPARISON: None available.. LMP: Unknown. Gestational age by maternal dates is unknown. Estimated date of delivery by maternal dates is unknown. TECHNIQUE: Transabdominal imaging of pelvis is performed. FINDINGS: There is visualization of the gestational sac with a pole and yolk sac. heart beat is identified. HR: 123 beats per minute. CRL (crown rump length): 0.54 cm (6 weeks and 3 days +/- 4 days). GILBERT (estimated date of delivery): 08/30/2023 +/- 4 days. MATERNAL ADNEXA: The right maternal ovary measures: 2.65 x 1.97 x 2.57 cm. The left maternal ovary measures: 2.35 x 1.60 x 1.99 cm. There is no significant maternal adnexal mass. No maternal pelvic ascites. US/US OB <= 14 weeks fetus IMPRESSION: 1. Single intrauterine gestation with ultrasound gestational age of 6 weeks and 3 days +/- 4 days. 2. Estimated date of delivery is 08/30/2023 +/- 4 days. 3. No maternal adnexal mass or pelvic ascites.
== END 2023-01-07 13:59 | disposition home or self-care (01) ==
LOC: HO.HMGCX 13:58
PROVIDERS: Visit Provider Advanced Practice Midwife
DX: Z34.91 Encounter for supervision of normal pregnancy, unspecified, first trimester (principal); Z3A.01 Less than 8 weeks gestation of pregnancy
CPT/HCPCS: 76801

== ENCOUNTER → 2023-01-11 13:17 | Outpatient (BNVA) | payer OTHER, SELFPAY | PROVIDERS: Visit Provider Obstetrics & Gynecology | DX: O24.111 Pre-existing type 2 diabetes mellitus, in pregnancy, first trimester (principal); R79.89 Other specified abnormal findings of blood chemistry; Z3A.01 Less than 8 weeks gestation of pregnancy; Z79.84 Long term (current) use of oral hypoglycemic drugs | CPT/HCPCS: 99212 ==